=== PATIENT | female | born 1995 | race Caucasian/White ===

== ENCOUNTER 2021-11-02 09:49 | Emergency (ER) | payer OTHER ==
--- NOTE | 2021-11-02 10:13 | ERPHSYRPT ---
- History of Present Illness Time Seen by Provider: 11/02/21 10:00 Historian: patient Exam Limitations: no limitations Patient Subjective Stated Complaint: PT states "For the past 4 days I have had chest pain on and off and I went and saw Dr. Nevarez about it and she said it was asthma from when I was little, but it is still going on and I am nervous." Triage Nursing Assessment: Pt presented alert and oriented X 3, skin pwd Pt ambualates with an upright steady gait, able to speak in clear full seentences. Pt in no apaprent respiratory distress. pt resting comfortably on the bed. Physician History: Patient is a 26-year-old female presents to emergency department for evaluation of substernal chest pain. Symptoms have been intermittently occurring for the past 4 days. Patient follow-up with her primary care doctor who felt it was asthma. Patient is here because she had another episode of chest pain. No asso ciated nausea vomiting or diaphoresis. Patient believes it may be acid reflux. Patient has taken [id number] antacids. No significant relief. No trauma. No fever. Patient has a history of treated hypothyroidism. Patient otherwise feels well. Patient denies a cardiac history. She voices no other complaints or concerns at this time Timing/Duration: day(s) (4 days) Activities at Onset: none Quality: aching Location: substernal Chest Pain Radiation: no radiation Severity of Pain-Max: moderate Severity of Pain-Current: mild Modifying Factors: Improves With: nothing Associated Symptoms: denies symptoms Prior Chest Pain/Cardiac Workup: no prior chest pain Nitro Today/Relief: no nitro taken today Aspirin Treatment Today: no aspirin today Allergies/Adverse Reactions: No Known Drug Allergies Allergy (Verified 11/02/21 09:56) Home Medications: Levothyroxine Sodium [Levothyroxine] 125 mcg PO 11/02/21 [History] Propranolol HCl 40 mg PO 11/02/21 [History] Hx Tetanus, Diphtheria Vaccination/Date Given: No Hx Influenza Vaccination/Date Given: No Hx Pneumococcal Vaccination/Date Given: No Immunizations Up to Date: Yes Travel Risk - International Travel Have you traveled outside of the country in past 3 weeks: No - Coronavirus Screening Are you exhibiting any of the following symptoms?: No Close contact with a COVID-19 positive Pt in past 14-21 Days: No - Vaccine Status Have you recieved a Covid-19 vaccination: No - Review of Systems Constitutional: No Symptoms, No Fever, No Chills Eyes: No Symptoms Ears, Nose, & Throat: No Symptoms Respiratory: No Symptoms, No Cough, No Dyspnea Cardiac: No Symptoms, No Chest Pain, No Edema, No Syncope Abdominal/Gastrointestinal: No Symptoms, No Abdominal Pain, No Nausea, No Vomiting, No Diarrhea Genitourinary Symptoms: No Symptoms, No Dysuria Musculoskeletal: No Symptoms, No Back Pain, No Neck Pain Skin: No Symptoms, No Rash Neurological: No Symptoms, No Dizziness, No Focal Weakness, No Sensory Changes Psychological: No Symptoms Endocrine: No Symptoms Hematologic/Lymphatic: No Symptoms Immunological/Allergic: No Symptoms All Other Systems: Reviewed and Negative - Past Medical History Pertinent Past Medical History: Yes Endocrine Medical History: Hypothyroidism - Past Surgical History Past Surgical History: No - Social History Smoking Status: Never smoker Exposure to second hand smoke: Yes Drug Use: none Patient Lives Alone: No - Female History Hx Last Menstrual Period: 09/26/2021 Hx Now: No - Nursing Vital Signs Nursing Vital Signs: Initial Vital Signs Temperature 97.6 F 11/02/21 09:49 Pulse Rate 79 11/02/21 09:49 Respiratory Rate 20 11/02/21 09:49 Blood Pressure 165/101 11/02/21 09:49 O2 Sat by Pulse Oximetry 100 11/02/21 09:49 Pain Scale Pain Intensity 0 - Physical Exam General Appearance: no apparent distress, alert Eye Exam: PERRL/EOMI, eyes nml inspection Ears, Nose, Throat Exam: normal ENT inspection, TMs normal, pharynx normal, moist mucous membranes Neck Exam: normal inspection, non-tender, supple, full range of motion Respiratory Exam: normal breath sounds, lungs clear, airway intact, No chest tenderness, No respiratory distress Cardiovascular Exam: regular rate/rhythm, normal heart sounds, normal peripheral pulses Gastrointestinal/Abdomen Exam: soft, normal bowel sounds, No tenderness, No mass Back Exam: normal inspection, normal range of motion, No CVA tenderness, No vertebral tenderness Extremity Exam: normal inspection, normal range of motion Neurologic Exam: alert, oriented x 3, cooperative, chin strap cutter II-XII nml as tested, normal mood/affect, sensation nml, No motor deficits Skin Exam: normal color, warm, dry Lymphatic Exam: No adenopathy SpO2 Interpretation: normal SpO2: 97 O2 Delivery: Room Air - Course Nursing assessment & vital signs reviewed: Yes EKG Interpreted by Me: RATE (74), Sinus Rhythm, NORMAL AXIS, NORMAL INTERVALS - Radiology Exams Chest X-ray Interpretation: Teleradiologist Report (Normal heart lungs and bony thora x) - CT Exams Chest CT Interpretation: Tele-radiologist Report (CT chest shows subcarinal adenopathy, hilar lymphadenopathy, lung nodule, spine arthritis, fatty liver and splenomegaly. Otherwise negative. No PE observed) Ordered Tests: Active Orders 24 hr Category Date Time Status Die Cast Engineer STAT Care 11/02/21 10:07 Completed EKG-ER Only STAT Care 11/02/21 10:06 Completed IV Insertion STAT Care 11/02/21 10:06 Completed Pulse Oximetry (ED) STAT Care 11/02/21 10:06 Completed CHEST 1 VIEW (PORTABLE) Stat Exams 11/02/21 10:07 Completed CHEST WITH CONTRAST [CT] Stat Exams 11/02/21 11:15 Completed CBC W DIFF Stat Lab 11/02/21 10:00 Completed CMP Stat Lab 11/02/21 10:00 Completed D-DIMER QUANTITATIVE Stat Lab 11/02/21 10:00 Completed NT PRO BNP Stat Lab 11/02/21 10:00 Completed TROPONIN Q3H Lab 11/02/21 10:00 Completed TROPONIN Q3H Lab 11/02/21 12:45 Completed TROPONIN Q3H Lab 11/02/21 16:15 Ordered TROPONIN Q3H Lab 11/02/21 19:15 Ordered TROPONIN Q3H Lab 11/02/21 22:15 Ordered Lab/Rad Data: Laboratory Result Diagrams 11/02/21 10:00 11/02/21 10:00 Laboratory Results 11/02/21 11/02/21 11/02/21 Range/Units 12:45 10:00 10:00 WBC (4.0-10.5) K/mm3 RBC (4.1-5.4) M/mm3 Hgb (12.0-16.0) gm/dl Hct (35-47) % MCV (78-100) fl MCH (26-32) pg MCHC (32-36) g/dl RDW (11.5-14.0) % Plt Count (150-450) K/mm3 MPV (7.5-11.0) fl Gran % (36.0-66.0) % Eos # (Auto) (0-0.5) Absolute Lymphs (auto) (1.0-4.6) Absolute Monos (auto) (0.0-1.3) Lymphocytes % (24.0-44.0) % Monocytes % (0.0-12.0) % Eosinophils % (0.00-5.0) % Basophils % (0.0-0.4) % Absolute Granulocytes (1.4-6.9) Basophils # (0-0.4) D-Dimer 694 H* (215-500) ng/mL Sodium (137-145) mmol/L Potassium (3.5-5.1) mmol/L Chloride (98-107) mmol/L Carbon Dioxide (22-30) mmol/L Anion Gap (5-15) MEQ/L BUN (7-17) mg/dL Creatinine (0.52-1.04) mg/dL Estimated GFR ML/MIN Glucose (74-106) mg/dL Calcium (8.4-10.2) mg/dL Total Bilirubin (0.2-1.3) mg/dL AST (14-36) U/L ALT (0-35) U/L Alkaline Phosphatase (38-126) U/L Troponin I < 0.012 < 0.012 (0.000-0.034) ng/mL NT-Pro-B Natriuret Pep (0-450) pg/mL Serum Total Protein (6.3-8.2) g/dL Albumin (3.5-5.0) g/dL 11/02/21 11/02/21 Range/Units 10:00 10:00 WBC 6.4 (4.0-10.5) K/mm3 RBC 4.40 (4.1-5.4) M/mm3 Hgb 12.4 (12.0-16.0) gm/dl Hct 38.4 (35-47) % MCV 87.3 (78-100) fl MCH 28.2 (26-32) pg MCHC 32.3 (32-36) g/dl RDW 13.4 (11.5-14.0) % Plt Count 253 (150-450) K/mm3 MPV 11.6 H (7.5-11.0) fl Gran % 62.4 (36.0-66.0) % Eos # (Auto) 0.06 (0-0.5) Absolute Lymphs (auto) 1.88 (1.0-4.6) Absolute Monos (auto) 0.46 (0.0-1.3) Lymphocytes % 29.3 (24.0-44.0) % Monocytes % 7.2 (0.0-12.0) % Eosinophils % 0.9 (0.00-5.0) % Basophils % 0.2 (0.0-0.4) % Absolute Granulocytes 4.00 (1.4-6.9) Basophils # 0.01 (0-0.4) D-Dimer (215-500) ng/mL Sodium 137 (137-145) mmol/L Potassium 4.3 (3.5-5.1) mmol/L Chloride 104 (98-107) mmol/L Carbon Dioxide 25 (22-30) mmol/L Anion Gap 12.2 (5-15) MEQ/L BUN 10 (7-17) mg/dL Creatinine 0.57 (0.52-1.04) mg/dL Estimated GFR > 60.0 ML/MIN Glucose 78 (74-106) mg/dL Calcium 9.2 (8.4-10.2) mg/dL Total Bilirubin 0.40 (0.2-1.3) mg/dL AST 20 (14-36) U/L ALT 19 (0-35) U/L Alkaline Phosphatase 107 (38-126) U/L Troponin I (0.000-0.034) ng/mL NT-Pro-B Natriuret Pep 304 (0-450) pg/mL Serum Total Protein 7.7 (6.3-8.2) g/dL Albumin 4.1 (3.5-5.0) g/dL - Progress Progress: improved Air Movement: good Progress Note: Patient reassessed. She is well. Chest pain reproduced with palpation to chest wall. Cardiac work-up negative. EKG normal sinus rhythm with 2 - troponins. Chest x-ray nonremarkable. D-dimer positive CTA chest negative for PE. However lymphadenopathy observed as well as a lung nodule. Patient aware that she will require follow-up for this nodule. Laboratory work-up otherwise nonremarkable. Patient patient ready for discharge. Vital stable. No indication for further work-up at this time. Will discharge home. Patient agrees to follow-up with a primary care doctor within 48 hours for reevaluation. Portions of this note were created with voice recognition technology. There may be grammatical, spelling, punctuation or sound alike errors 11/02/21 14:52 Blood Culture(s) Obtained: No Antibiotics given: No Counseled pt/family regarding: lab results, diagnosis, need for follow-up, rad results - Departure Departure Disposition: Home Clinical Impression: Nonspecific chest pain, Subcarinal adenopathy, Hilar lymphadenopathy, Lung nodule, Arthritis of spine, Fatty liver, Splenomegaly, Chest wall pain Condition: Stable Critical Care Time: No Referrals: JAMSHID BLANKENSHIP MD [Primary Care Provider] - Follow up/PCP as directed Additional Instructions: You will likely require follow-up chest CAT scan for further evaluation of the lung nodule observed on your chest CAT scan. Discharge/Care Plan LAUREN BRADSHAW was seen on 11/02/21 in the Emergency Room. The patient was counseled regarding Diagnosis,Lab results, Imaging studies, need for follow up and when to return to the Emergency Room. Prescriptions given: Discharge Note I have spoken with the patient and/or caregivers. I have explained the patient's condition, diagnosis and treatment plan based on the information available to me at this time. I have answered the patient's and/or caregiver's questions and addressed any concerns. The patient and/or caregivers have as good understanding of the patient's diagnosis, condition and treatment plan as can be expected at this point. The vital signs have been stable. The patient's condition is stable and appropriate for discharge from the emergency department. The patient will pursue further outpatient evaluation with the primary care physician or other designated or consulting physician as outlined in the discharge instructions. The patient and/or caregivers are agreeable to this plan of care and follow-up instructions have been explained in detail. The patient and/or caregivers have received these instruction. The patient/and or caregivers are aware that any significant change in condition or worsening of symptoms should prompt an immediate return to this or the closest emergency department or call 911.
[2021-11-02 10:31] LABS: Basophil (Absolute #) 0.01 (0-0.4); Eosinophil % 0.9 % (0.00-5.0); Eosinophil (Absolute #) 0.06 (0-0.5); Hematocrit 38.4 % (35-47); Hemoglobin 12.4 gm/dl (12.0-16.0); Lymphocyte (Absolute #) 1.88 (1.0-4.6); Lymphocytes % 29.3 % (24.0-44.0); Mean Cell Volume 87.3 fl (78-100); Mean Corpuscular Hemoglobin 28.2 pg (26-32); Mean Corpuscular Hgb Concent. 32.3 g/dl (32-36); Mean Platelet Volume 11.6 fl (7.5-11.0); Monocyte (Absolute #) 0.46 (0.0-1.3); Monocytes % 7.2 % (0.0-12.0); Neutrophil % 62.4 % (36.0-66.0); Platelet Count 253 K/mm3 (150-450); Red Cell Distribution Width 13.4 % (11.5-14.0); White Blood Count 6.4 K/mm3 (4.0-10.5)
--- NOTE | 2021-11-02 10:34 | XRAY ---
Indication: Chest pain. Comparison: None Portable chest demonstrates normal heart, lungs, and bony thorax.
[2021-11-02 11:18] LABS: ALBUMIN 4.1 g/dL (3.5-5.0); ALKALINE PHOSPHATASE 107 U/L (38-126); ANION GAP 12.2 MEQ/L (5-15); BLOOD UREA NITROGEN 10 mg/dL (7-17); CHLORIDE 104 mmol/L (98-107); Calcium 9.2 mg/dL (8.4-10.2); Carbon Dioxide 25 mmol/L (22-30); Creatinine 1 0.57 mg/dL (0.52-1.04); EST GLOMERULAR FILTRATION RATE > 60.0 ML/MIN; Glucose 78 mg/dL (74-106); NT PRO BNP 304 pg/mL (0-450); Potassium 4.3 mmol/L (3.5-5.1); SGOT/AST 20 U/L (14-36); SGPT/ALT 19 U/L (0-35); SODIUM 137 mmol/L (137-145); Total Protein 7.7 g/dL (6.3-8.2)
--- NOTE | 2021-11-02 12:00 | XRAY ---
Indication: Elevated d-dimer. Pulmonary was. Multiple contiguous images obtained through the chest using 100 cc Isovue 370 contrast and pulmonary embolus protocol. Comparison: None There is adequate opacification of the pulmonary arteries to include the lobar and segmental branches. No pulmonary embolus. Heart not enlarged. Aorta is normal in course and caliber. Prominent 1.7 x 3.1 cm subcarinal adenopathy. Smaller left hilar adenopathy, largest 1.0 x 2.1 cm. Lungs demonstrate 8mm posterior medial left lower lobe subpleural noncalcified nodule. No infiltrate, consolidation, or effusion. Bony thorax intact with minimal degenerative changes throughout the spine. Limited upper abdomen demonstrates fatty liver and 14.2 cm splenomegaly. Impression: 1. Negative pulmonary most. No acute cardiopulmonary abnormalities. 2. Nonspecific subcarinal and left hilar adenopathy as detailed. 3. Indeterminant subcentimeter left lower lobe subpleural noncalcified nodule. Finding too small for PET/CT. Recommend follow-up per Fleischner guidelines. 4. Incidental fatty liver and splenomegaly.
[2021-11-02 14:06] VITALS: BP 118/78
[2021-11-02 14:49] VITALS: PULSE 65
[2021-11-02 14:54] VITALS: O2SAT 97
== END 2021-11-02 14:51 | disposition home or self-care (01) ==
LOC: ED 09:49
DX: R07.89 Other chest pain (principal); R59.0 Localized enlarged lymph nodes; R91.1 Solitary pulmonary nodule; M47.9 Spondylosis, unspecified; K76.0 Fatty (change of) liver, not elsewhere classified; R16.1 Splenomegaly, not elsewhere classified; Z79.899 Other long term (current) drug therapy
CPT/HCPCS: 36000; 36415; 71045; 71260; 80053; 83880; 84484; 85025; 85379; 93005; 93041; 94760; 99284